=== PATIENT | male | born 1950 | race Caucasian/White ===

== ENCOUNTER 2019-06-16 17:54 | Inpatient (IN) | payer OTHER ==
[~2019-06-16] VITALS: Ht 182.9 cm; Wt 85.6 kg
[2019-06-16 17:54] VITALS: BP 174/89
[~2019-06-16 17:54] MED LIST: ASPIRIN EC81 M1 PO; CARVEDILOL3.125 MG PO; CLARITIN10 MG PO; COREG6.25 MG PO; EFFIENT10 MG PO; FISH OIL 1,0001 EAC5 PO; GLUCOPHAGE XR500 MG PO; KOMBIGLYZE XR1 EAC2 PO; LEVOTHYROXIN0.112 M1 PO; LISINOPRIL2.5 MG PO; NIASPAN ER 101000 M1 PO; NITROGLYCERIN0.4 MG SUBLING; SYNTHROID125 MCG PO
[2019-06-16 18:23] LABS: ABSOLUTE NEUTROPHILS 6.3 thou/uL (1.4-8.2); BASOPHILS 0.5 % (0.0-2.0); EOSINOPHILS 3.8 % (0.0-3.0); HEMATOCRIT 39.6 % (42.0-52.0); HEMOGLOBIN 13.4 gm/dL (14.0-18.0); LYMPHOCYTES 22.5 % (24.0-44.0); MCH 31.2 pg (26.0-34.0); MCHC 33.9 g/dL (28.0-37.0); MCV 92.2 fL (80.0-100.0); PLATELET COUNT 228 thou/uL (150-400); POLYS 63.2 % (36.0-66.0); RDW 14.6 % (10.5-14.5); WBC 9.9 thou/uL (4.0-11.0)
[2019-06-16 18:34] LABS: CALCIUM 9.4 mg/dL (8.5-10.1); CREATININE 1.1 mg/dL (0.7-1.3); POTASSIUM 3.7 mmol/L (3.5-5.1)
[2019-06-16 18:43] LABS: ALBUMIN 4.3 g/dL (3.4-5.0); TOTAL BILIRUBIN 0.4 mg/dL (<0.1-1.0); TOTAL PROTEIN 7.7 g/dL (6.4-8.2); TROPONIN-I 0.07 ng/mL (<0.06)
[2019-06-16 18:55] LABS: URINE BILIRUBIN NEGATIVE (Negative); URINE BLOOD NEGATIVE (Negative); URINE CLARITY CLEAR; URINE COLOR YELLOW; URINE GLUCOSE-RANDOM* 1+ (Negative); URINE KETONES 1+ (Negative); URINE LEUKOCYTES-REFLEX NEGATIVE (Negative); URINE NITRITE-REFLEX NEGATIVE (Negative); URINE PROTEIN (DIPSTICK) NEGATIVE (Negative)
[2019-06-16 23:13] VITALS: BP 146/77
[2019-06-16 23:48] VITALS: BP 160/84
[2019-06-17 03:22] VITALS: BP 122/80
[2019-06-17 06:47] LABS: ALBUMIN 3.5 g/dL (3.4-5.0); CALCIUM 8.5 mg/dL (8.5-10.1); CREATININE 1.1 mg/dL (0.7-1.3); POTASSIUM 4.2 mmol/L (3.5-5.1); TOTAL BILIRUBIN 0.7 mg/dL (<0.1-1.0); TOTAL PROTEIN 6.7 g/dL (6.4-8.2)
[2019-06-17 06:49] LABS: CHOLESTEROL 117 mg/dL (<200); HDL CHOLESTEROL 44 mg/dL (>40); LDL CHOLESTEROL 67 mg/dL (<100); SERUM ASSESSMENT Clear; TC:HDL 2.7 Ratio (Not establshd); TRIGLYCERIDE 33 mg/dL (<150); VLDL 7 mg/dL (<40)
[2019-06-17 07:09] VITALS: BP 122/71
--- NOTE | 2019-06-17 08:08 | EKG ---
[address] [place] [address] ELECTROCARDIOGRAM REPORT Name: MARY CHO Room #: 350-P ADM IN M.R.#: [id number] Admission: 06/16/19 Attend Phys: Nathalia Alberto MD Discharge: Date of : 48 Report #: [id number] THIS REPORT FOR: //name// [facility] ED Test Date: 2019-06-16 Test Time: 17:54:46 Pat Name: MARY CHO Department: Room: 350 Gender: M Financial Assistant: MUSA : 1950 Requested By: Jack Prakash Order Number: [id number] MD: Jin Clay Measurements Intervals [place] Rate: 51 P: 62 WV: 168 QRS: 59 QRSD: 119 T: 57 QT: 483 QTc: 445 Interpretive Statements Sinus bradycardia Incomplete right bundle branch block Compared to ECG 08/24/2012 07:39:21 Ventricular premature complex(es) no longer present Electronically Signed On 06-17-2019 8:08:33 CDT by Jin Clay [email or web address] <ELECTRONICALLY SIGNED> By: Jin Clay MD, [facility] 06/17/19 [phone] Jin Clay MD, [facility] /EPI
--- NOTE | 2019-06-17 10:17 | NUR ---
ASSESSMENT: CM REVIEWED CHART AND MET WITH PATIENT AT THE BEDSIDE. PT WAS ADMITTED WITH EPIGASTRIC PAIN/INCREASED TROPONIN. PT REPORTS THAT HE LIVES IN A HOUSE WITH HIS . PT HAS A COUPLE STEPS TO ENTER AND REPORTS THEY LIVE IN A RANCH BUT HAS ABOUT 14 STEPS WITH HANDRAILS TO THE BASEMENT WHERE HE EXERCISES. PT REPORTS HE IS FULLY INDEPENDENT WITH ADLS AND AMBULATION. PT HAS NOT HAD HH IN THE PAST. CM DISCUSSED ROLE. PT DOES NOT ANTICIPATE HAVING ANY NEEDS AT DISCHARGE.
[2019-06-17 11:09] LABS: ABSOLUTE NEUTROPHILS 10.8 thou/uL (1.4-8.2); BASOPHILS 0.4 % (0.0-2.0); HEMATOCRIT 38.2 % (42.0-52.0); HEMOGLOBIN 12.5 gm/dL (14.0-18.0); LYMPHOCYTES 8.7 % (24.0-44.0); MCH 30.7 pg (26.0-34.0); MCHC 32.6 g/dL (28.0-37.0); MONOCYTES 11.9 % (1.0-8.0); PLATELET COUNT 180 thou/uL (150-400); RBC 4.07 mil/uL (4.50-6.00); RDW 14.4 % (10.5-14.5); WBC 13.7 thou/uL (4.0-11.0)
[2019-06-17 12:22] VITALS: BP 126/69
--- NOTE | 2019-06-17 12:32 | EXE ---
[facility] [place] [address] STRESS ECHOCARDIOGRAM Name: MARY CHO Room #: 350-P [facility] IN .#: [id number] Admission: 06/16/19 Attend Phys: Nathalia Alberto, Discharge: Date of : 48 Report #: [id number] THIS REPORT FOR: //name// APPROVED REPORT Study performed: 06/17/2019 11:08:10 Exam: Stress Echocardiogram Indication: Elevated troponin Patient Location: Echo lab Stress Nurse: Carolynn Cunningham RN Status: routine Ht: 6 ft 0 in Medical History Medical History: CAD s/p stents in 2011, HTN, Hyperlipidemia, Diabetes Medications: Carvedilol Exercise History: Physically active Procedure The patient underwent an Exercise Stress Test using the Jaspreet Protocol. Blood pressure, heart rate, and EKG were monitored. An Echocardiogram was performed by log data technician in four stages in quad fashion. At peak stress, four selected images were obtained and placed side by side with resting images for comparison. Stress Test Details Stress Test: Exercise stress testing was performed using a Jaspreet protocol. HR Resting HR: 65 bpm Max Heart Rate (APMHR): 151 bpm Max HR Achieved: 139 bpm Target HR (85% APMHR): 128 bpm % of APMHR: 92 Recovery HR: 82 bpm HR response to stress: Normal HR response to stress BP Resting BP: 122/76 mmHg Max BP: 144/56 mmHg Recovery BP: 128/62 mmHg BP response to stress: Normal blood pressure response to stress. ECG [facility] [address] [place] [address] STRESS ECHOCARDIOGRAM Name: MARY CHO Howie Room #: 350-P [facility] IN [facility].#: [id number] Admission: 06/16/19 Attend Phys: Nathalia Alberto, Discharge: Date of : 48 Report #: [id number] Clinical Reason for Termination: Maximal effort Stress Symptoms: Fatigue Exercise duration: 9 min 43 sec Highest Stage Achieved: Stage 4: 4.2 mph at 16% grade. Exercise capacity: 10.60 METs Pre-Stress Echo The resting Echocardiogram showed normal left ventricular contractility with an estimated Ejection Fraction of about 55%. Post-Stress Echo Compared to rest, there were no stress-induced wall motion abnormalities. Conclusion Clinical Response: Non-ischemic Exercise Capacity: Average Stress ECG Response: Non-ischemic Stress Echo Images: Non-ischemic Other Information Study Quality: Adequate <ELECTRONICALLY SIGNED> By: Clem Shore MD, FACC 06/17/19 1232 123 123 Clem Shore MD, FACC /INF
--- NOTE | 2019-06-17 18:18 | NUR ---
PATIENT BACK FROM SURGERY. HE IS ALERT ORIENTED X4. POSITIVE ABOUT POSSIBLE SURGERY IN AM. HE IS UP AD ARON. NO COMPLAIN OF PAIN AT THIS TIME. RESPIRATIONS ARE NON LABORED. LUNGS CLEAR AT THIS TIME. EATING DINNER NOW. WILL CONT WITH PLAN OF CARE.
[2019-06-17 19:09] VITALS: BP 122/72
[2019-06-18] VITALS (13 sets, daily range): BP systolic 124–143; BP diastolic 74–91
[2019-06-18 00:05] LABS: GLYCOHEMOGLOBIN (HGB A1C) 6.4 % (4.8-5.6)
[2019-06-18 04:55] LABS: HEMATOCRIT 35.6 % (42.0-52.0); HEMOGLOBIN 11.8 gm/dL (14.0-18.0); MCH 30.7 pg (26.0-34.0); MCV 93.1 fL (80.0-100.0); RBC 3.83 mil/uL (4.50-6.00); RDW 14.4 % (10.5-14.5); WBC 9.6 thou/uL (4.0-11.0)
[2019-06-18 05:16] LABS: CALCIUM 8.7 mg/dL (8.5-10.1); CREATININE 1.2 mg/dL (0.7-1.3); MAGNESIUM 2.2 mg/dL (1.8-2.4); PHOSPHORUS 2.4 mg/dL (2.5-4.9); POTASSIUM 4.7 mmol/L (3.5-5.1)
[2019-06-18 05:18] LABS: DIRECT BILIRUBIN 1.9 mg/dL (<0.1-0.3); TOTAL PROTEIN 5.9 g/dL (6.4-8.2)
--- NOTE | 2019-06-18 05:58 | NUR ---
PT MAKING PROGRESS TOWARDS GOALS. PT HAS DENIED ANY ABDOMINAL PAIN OVERNIGHT. DENIED ANY NAUSEA WELL. HAS BEEN TO TOILET TO URINATE AND SHOWER THIS AM FOR TODAY'S SURGERY.
--- NOTE | 2019-06-18 09:00 | NUR ---
PATIENT LEFT UNIT TO OR WITH HOSPITAL OR STAFF.
--- NOTE | 2019-06-18 11:26 | HC ---
[facility] [place] [place] [address] CONSULTATION Name: TAMMIEMARY Room #: 350-P [facility] IN .R.#: [id number] Admission: 06/16/19 Attend Phys: Nathalia Alberto MD Discharge: Date of : 48 Report #: [id number] THIS REPORT FOR: //name// CC: Dr. Ham Alberto MD DATE OF SERVICE: 06/17/2019 HISTORY OF PRESENT ILLNESS: The patient is a 68-year-old male who was admitted for abdominal pain, primarily mid epigastric, but also in the right upper quadrant and periumbilical region. He denies any fevers or chills at home, is febrile here today with a temperature 101.1. His white count is 13.7. Liver function tests are normal currently. He underwent a CT scan of the abdomen and pelvis yesterday, which showed multiple gallstones within the gallbladder, also multiple small stones seen in the distal common bile duct within the pancreatic head region. No current findings for biliary obstruction, moderate amount of stool throughout the colon, extensive diverticulosis, no inflammation. An ultrasound of the abdomen was performed this morning, which showed mild prominence of the common bile duct at 7.1 mm. This could represent very minimal common bile duct obstruction, gallstones in the gallbladder, gallbladder with thickness was normal. There is a possible gallbladder polyp. No changes of acute cholecystitis noted. The patient currently denies any chest pain or shortness of breath. He does report some mild intermittent right upper quadrant abdominal pain in the last few months. He was noted to have mildly elevated troponin level on admission. Cardiology evaluated the patient. He underwent an ischemic stress test and an echo. I do not have those results; however, reportedly these were negative. PAST MEDICAL HISTORY: Coronary artery disease, history of hypertension, hyperlipidemia, diabetes, history of stent placement in 2011. ALLERGIES: STATINS. REVIEW OF SYSTEMS: As per HPI. MEDICATIONS ON ADMISSION: Claritin, Kombiglyze, Niaspan, nitroglycerin sublingual p.r.n., Synthroid, fish oil, aspirin 81 mg, carvedilol. SOCIAL HISTORY: Used to smoke. He does report occasional alcohol use. FAMILY HISTORY: Negative for colon cancer. Last colonoscopy was by myself on 03/31/2018, a small polyp was removed and diverticulosis was noted. [address] [address] CONSULTATION Name: MARY CHO Room #: 350-P [facility] IN [facility]#: [id number] Admission: 06/16/19 Attend Phys: Nathalia Alberto MD Discharge: Date of : 48 Report #: [id number] PHYSICAL EXAMINATION: VITAL SIGNS: T-Max is 101.1 that was early this morning, most recent temperature is 100.1, pulse 82, blood pressure 126/69, respiratory rate is 20. GENERAL: He is alert and oriented x 3, in no acute distress. HEENT: Sclerae nonicteric. Oropharynx clear. NECK: Supple, without lymphadenopathy. CARDIOVASCULAR: Regular rate and rhythm. CHEST: Clear to auscultation bilaterally. ABDOMEN: Soft. He is mildly tender to palpation in the midepigastrium right upper quadrant, nondistended, normoactive bowel sounds. EXTREMITIES: No cyanosis, clubbing or edema. LABORATORY DATA: Sodium 141, potassium 4.2, chloride 105, bicarbonate 28, BUN 12, creatinine 1.1, glucose 146, AST 16, lipase 169, total bilirubin 0.7, alkaline phosphatase 73, ALT is 50, total protein 6.7, albumin 3.5. WBC is 13.7, hemoglobin 12.5, platelet count is 180. ASSESSMENT AND PLAN: Abdominal pain. CT and ultrasound showing cholelithiasis. The patient also was noted to have choledocholithiasis on CT scan, his duct is mildly dilated. His liver function tests are normal at this time. I had a long discussion with the patient and his today. I would recommend proceeding with an ERCP. The patient is febrile at this time. Agree with antibiotics, which have now been started. I will make further recommendations after ERCP today. The patient will need a General Surgery consult as well for possible laparoscopic cholecystectomy in the near future. Thank you for allowing me to participate in his care. <ELECTRONICALLY SIGNED> By: Kaushik Trinidad MD 06/18/19 1126 1652 0209 Kaushik Trinidad MD /nt
--- NOTE | 2019-06-18 11:26 | P ---
[facility] [place] [address] PROCEDURE REPORT Name: TAMMIEMARY Room #: 350-P [facility] IN .R.#: [id number] Admission: 06/16/19 Attend Phys: Nathalia Alberto MD Discharge: Date of : 48 Report #: [id number] THIS REPORT FOR: //name// CC: Dr. Ham Alberto MD DATE OF SERVICE: 06/17/2019 PROCEDURE PERFORMED: ERCP. HISTORY OF PRESENT ILLNESS: The patient is a 68-year-old male with abdominal pain. CT scan of the abdomen and pelvis last night showed choledocholithiasis as well as cholelithiasis. Liver function tests are normal. Ultrasound also showing mild dilation of his common bile duct to 7.1 mm, no gallbladder wall thickening. The patient was febrile early this morning. He has a mildly elevated white count. I had a long discussion with the patient regarding his symptoms and imaging results. I explained to the patient I would recommend proceeding with an ERCP due to his common bile duct stones and his symptoms. He understood and agreed. DESCRIPTION OF PROCEDURE: The risks and benefits of the procedure were explained to the patient, those risks including but not limited to bleeding, perforation, the risk of sedation as well as potential risk for post-ERCP pancreatitis. He understood these risks and gave informed consent. The procedure was performed in the operating room under general anesthesia. The patient has already been started on IV Zosyn. He was also given 50 mg indomethacin rectal suppository prior to the procedure. Next, using a standard Olympus side-viewing ERCP scope, the scope was placed in the patient's mouth and advanced under direct vision through the esophagus, stomach and into the second portion of the duodenum. The major papilla was identified, which was normal in appearance. Next, using a Jose-Cook 0.025 sphincterotome catheter, the common bile duct was attempted to be cannulated. Multiple attempts were made. Eventually, I was able to obtain a cholangiogram. It appears there is a stone in the distal common duct that is lodged in this area. The common bile duct does fill slowly. There are multiple other filling defects within the common bile duct consistent with choledocholithiasis. The intrahepatics appeared normal. The PD also feels at the same time of the common bile duct. I attempted multiple times to pass a guidewire up into the common bile duct, but it appears again, there is a stone in the distal duct impeding this. It allows contrast to flow and obtain a cholangiogram, although this is not easy, but a wire was not able to be passed. We tried rotating the patient. I tried 2 different sphincterotome catheters and different wires as well. After multiple attempts of being unsuccessful to pass a wire at that point, I decided to [address] [address] PROCEDURE REPORT Name: TAMMIEMARY Room #: 350-P [facility] IN M.R.#: [id number] Admission: 06/16/19 Attend Phys: Nathalia Alberto MD Discharge: Date of : 48 Report #: [id number] terminate the procedure. The scope was withdrawn and the procedure terminated. The patient tolerated the procedure well. Next, cholangiogram showing multiple filling defects in the common bile duct consistent with stones. Unfortunately, there appears to be a stone in the distal duct that I was not able to pass a wire beyond. Again, contrast would flow be around, but I was unable to advance the catheter or wire beyond the filling defect. The PD also filled at the same time of the common duct. RECOMMENDATIONS: Continue to monitor liver function tests. Continue IV antibiotics. Surgery consult for laparoscopic cholecystectomy. The patient may need a reattempt ERCP in the near future. I would recommend possibly having Dr. Aguilera attempt this and he could use EUS as well if needed. Thank you for allowing me to participate in his care. <ELECTRONICALLY SIGNED> By: Kaushik Trinidad MD 06/18/19 1126 1657 0211 Kaushik Trinidad MD /nt
--- NOTE | 2019-06-18 14:20 | NUR ---
PATIENT RETURNED TO UNIT FROM PACU AT 1330 TODAY. HE IS ALERT AND ORIENTED. YESSENIA DRAIN AND T-TUBE INTACT. NURSE JUST CHECKED ON HIM AGAIN AND HE EXPRESED THAT HE DOES NOT NEED PAIN MEDICATION AT THIS TIME. NURSE TALKED WITH HIM ABOUT PAIN MANAGEMENT.
[2019-06-18 16:18] LABS: DIRECT BILIRUBIN 1.9 mg/dL (<0.1-0.3); TOTAL BILIRUBIN 2.6 mg/dL (<0.1-1.0); TOTAL PROTEIN 6.5 g/dL (6.4-8.2)
[2019-06-19 04:31] VITALS: BP 145/98
[2019-06-19 06:04] LABS: ALBUMIN 2.8 g/dL (3.4-5.0); CREATININE 1.1 mg/dL (0.7-1.3); DIRECT BILIRUBIN 0.4 mg/dL (<0.1-0.3); PHOSPHORUS 2.6 mg/dL (2.5-4.9); TOTAL BILIRUBIN 0.9 mg/dL (<0.1-1.0); TOTAL PROTEIN 6.5 g/dL (6.4-8.2)
[2019-06-19 06:09] LABS: CALCIUM 8.6 mg/dL (8.5-10.1)
--- NOTE | 2019-06-19 08:05 | NUR ---
ASSUMED CARE OF PT AT 1900. A&Ox4. VS STABLE, ASSMTS DOCUMENTED. DID NOT WANT PAIN MEDS DURING MOST OF SHIFT. REQUESTED PAIN MEDS AROUND 0400, PROVIDED AND PT ABLE TO REST. UPX1 ASSIST TO BR. VOIDED WITHOUT DIFFICULTY. 3U INSULIN GIVEN FOR BG OF 196. PROGRESSING WELL TOWARDS POC GOALS.
[2019-06-19 08:23] VITALS: BP 149/99
[2019-06-19 11:32] VITALS: BP 161/99
[2019-06-19 16:43] VITALS: BP 154/87
[2019-06-19 19:15] VITALS: BP 161/99
--- NOTE | 2019-06-19 21:24 | NUR ---
PT GIVEN PO PAIN MEDICATION ONCE THIS SHIFT. PT AMBULATED AROUND UNIT THREE TIMES. POSSIBLE DC TOMORROW. PT TOLERATED DIET ADVANCES WELL. DR GOLDBERG DID DRAIN TEAVHING WITH PT.
[2019-06-20 03:39] VITALS: BP 148/99
--- NOTE | 2019-06-20 03:55 | NUR ---
RESTING QUIETLY TONIGHT. CALLS FOR ASSIST OUT OF BED. HIS IV HYDROMORPHONE HELPS HIM REST THROUGH THE NIGHT SO THAT HE DOES AWAKE IN A HIGH PAIN LEVEL. CONTINUES ON IV FLUIDS. CAREPLAN REVIWEED.
[2019-06-20 06:36] LABS: HEMATOCRIT 34.9 % (42.0-52.0); HEMOGLOBIN 11.5 gm/dL (14.0-18.0); MCH 30.8 pg (26.0-34.0); MCV 93.3 fL (80.0-100.0); RBC 3.74 mil/uL (4.50-6.00); RDW 13.9 % (10.5-14.5); WBC 6.2 thou/uL (4.0-11.0)
[2019-06-20 06:54] LABS: ALBUMIN 2.6 g/dL (3.4-5.0); CALCIUM 8.2 mg/dL (8.5-10.1); CREATININE 1.1 mg/dL (0.7-1.3); DIRECT BILIRUBIN 0.2 mg/dL (<0.1-0.3); MAGNESIUM 1.7 mg/dL (1.8-2.4); POTASSIUM 3.4 mmol/L (3.5-5.1); TOTAL BILIRUBIN 0.5 mg/dL (<0.1-1.0); TOTAL PROTEIN 6.3 g/dL (6.4-8.2)
[2019-06-20 07:47] VITALS: BP 162/93
--- NOTE | 2019-06-20 09:03 | EKG ---
[address] [address] ELECTROCARDIOGRAM REPORT Name: MARY CHO Room #: 350-P ADM IN M.R.#: [id number] Admission: 06/16/19 Attend Phys: Nathalia Alberto MD Discharge: Date of : 48 Report #: [id number] THIS REPORT FOR: //name// [facility] Test Date: 2019-06-18 Test Time: 08:06:17 Pat Name: MARY CHO Department: Room: 350 P Gender: M Call Center Operations Manager: TYLOR : 1950 Requested By: Christine Dey Order Number: [id number] MD: Jin Clay Measurements Intervals [place] Rate: 56 P: 26 ME: 159 QRS: -7 QRSD: 111 T: 69 QT: 450 QTc: 435 Interpretive Statements Sinus bradycardia Early R-wave progression Compared to ECG 06/16/2019 17:54:46 no significant change was found Electronically Signed On 06-20-2019 9:03:11 CDT by Jin Clay [email or web address] <ELECTRONICALLY SIGNED> By: Jin Clay MD, [facility] 06/20/19902 5 5 Jin Clay MD, FACC /EPI
--- NOTE | 2019-06-20 09:15 | EKG ---
[address] [address] ELECTROCARDIOGRAM REPORT Name: AMRY CHO Room #: 350-P ADM IN M.R.#: [id number] Admission: 06/16/19 Attend Phys: Nathalia Alberto MD Discharge: Date of : 48 Report #: [id number] THIS REPORT FOR: //name// [facility] Test Date: 2019-06-19 Test Time: 07:22:16 Pat Name: MARY CHO Department: Room: 350 P Gender: M Speech Language Assistant: Reggie WHITMAN : 1950 Requested By: Iain Combs Order Number: [id number] MD: Jin Clay Measurements Intervals [place] Rate: 64 P: 2 MS: 147 QRS: -10 QRSD: 114 T: 68 QT: 433 QTc: 447 Interpretive Statements Sinus rhythm RSR' in V1 or V2, right VCD Compared to ECG 06/16/2019 17:54:46 no significant change was found Electronically Signed On 06-20-2019 9:15:17 CDT by Jin Clay [email or web address] <ELECTRONICALLY SIGNED> By: Jin Clay MD, [facility] 10/914 1 1 Jin Clay MD, [facility] /EPI
--- NOTE | 2019-06-20 10:02 | NUR ---
ON-GOING ASSESSMENT: CM REVIEWED CHART AND MET WITH PATIENT AND HIS AT THE BEDSIDE. PT IS S/P LES WERNER AND HAS T -TUBE. CM DISCUSSED ROLE AND IF HE WOULD PREFER HOME WITH HH DUE TO HAVING T-TUBE. PT STATES HE FEELS HE IS ABLE TO CARE FOR T-TUBE HIMSELF AND DOES NOT FEEL HE NEEDS HH. CM WILL CONTINUE TO FOLLOW TO ASSIST NEEDED. PT PLANS ON DISCHARGING HOME WITH NO NEEDS AT DISCHARGE.
[2019-06-20 15:19] VITALS: BP 137/95
--- NOTE | 2019-06-20 17:58 | NUR ---
PT UP AND WALKING THE HALLS TODAY AND TOLERATED WELL. YESSENIA AND T DRAIN REMIAN IN PLACE. ELECTROLYTES REPLACED TODAT. WILL CONTINUE TO ASSESS.
[2019-06-20 19:26] VITALS: BP 146/90
[2019-06-20 21:27] LABS: CALCIUM 8.1 mg/dL (8.5-10.1); CREATININE 1.1 mg/dL (0.7-1.3); MAGNESIUM 1.9 mg/dL (1.8-2.4); POTASSIUM 3.3 mmol/L (3.5-5.1)
--- NOTE | 2019-06-21 06:03 | NUR ---
Pt. transfered to the unit around 2330 last evening. He is alert and oriented. He did c/o some abdominal pain and was given iv pain med (see emar) with some relief noted. T-tube and fe drain to abdomen are intact. Up to the bathroom with stand by assistance.
[2019-06-21 07:13] LABS: HEMATOCRIT 37.9 % (42.0-52.0); HEMOGLOBIN 12.5 gm/dL (14.0-18.0); MCH 30.6 pg (26.0-34.0); MCHC 33.1 g/dL (28.0-37.0); MCV 92.5 fL (80.0-100.0); PLATELET COUNT 191 thou/uL (150-400); WBC 7.1 thou/uL (4.0-11.0)
[2019-06-21 07:27] LABS: ALBUMIN 2.6 g/dL (3.4-5.0); CALCIUM 8.5 mg/dL (8.5-10.1); POTASSIUM 3.1 mmol/L (3.5-5.1); TOTAL BILIRUBIN 0.6 mg/dL (<0.1-1.0); TOTAL PROTEIN 6.7 g/dL (6.4-8.2)
[2019-06-21] MEDS ORDERED: AUGMENTIN 875-1 EACH PO (09:16)
[2019-06-21 09:19] LABS: ABSOLUTE NEUTROPHILS 4.7 thou/uL (1.4-8.2); PLATELET ESTIMATE NORMAL
[2019-06-21 09:24] VITALS: BP 140/89
[2019-06-21] MEDS ORDERED: ONGLYZA2.5 MG PO (10:22)
[2019-06-21] MEDS ORDERED: POTASSIUM20 PO (10:22)
[2019-06-21] MEDS ORDERED: MAG-OXIDE400 MG PO (10:22)
[2019-06-21 13:49] VITALS: BP 140/89
--- NOTE | 2019-06-21 14:02 | NUR ---
Assumed patient care at 0715. Patient's vital signs have been stable; he denies pain. Latest blood sugar was 156 at 1216, requiring 3 units of Insulin Lispro. Food and fluid intake appropriate. Dr Combs removed J-drain which had small amount of serosanginious fluid in it. T-drain will be removed at follow-up with Dr Combs; output 200cc prior ro Discharge. Patient signed Discharge paperwork after verbalizing an understanding. Patient escorted in wheelchair out with all of his belongings. present.
--- NOTE | 2019-06-21 14:46 | NUR ---
CARE TEAM INDICATED THAT PT IS MEDICALLY STABLE TO DC HOME THIS DAY. PT IS TO DC HOME WITH NO NEEDS. NO OTHER CM INTERVENTION INDICATED. CASE CLOSED.
--- NOTE | 2019-06-21 18:06 | PATH ---
[facility] [address] [address] PATHOLOGY RPT PROCEDURE Name: AJAY CHO Howie Room #: 456-P [facility] IN M.R.#: [id number] Admission: 06/16/19 Date of : 48 Discharge: 06/21/19 Report #: [id number] Path Case #: [id number] [facility] Accession Number: [id number] . 01 Material submitted: . PART A: gallbladder - COMMON BILE DUCT STONES PART B: gallbladder - GALLBLADDER . 01 Clinical history: . Acute cholecystitis, cholelithiasis, obstructive jaundice Pancreatitis . 02 Diagnosis: A. Common bile duct stones: - Multiple hernandez to brown calculi, 1.8 cm aggregate measurement (gross exam only). . B. Gallbladder, cholecystectomy: - Hemorrhagic and gangrenous cholecystitis associated with ulceration. - Incidental lymph node within gallbladder wall. . (IUV:jocelyn; 06/21/2019) MBR 06/21/2019 1339 Local . 02 Electronically signed: . Mayra House MD, Pathologist NPI- [id number] . 01 Gross description: . A. The specimen is received in formalin, labeled "Ajay Cho, common bile duct stones" and consists of multiple hernandez-brown smooth to fragmented calculi measuring 1.8 x 0.5 x 0.3 cm in aggregate. A gross photo is taken and no sections are submitted. . B. The specimen is received in formalin labeled "Ajay Cho, gallbladder" and consists of a previously opened, pink-purple markedly hemorrhagic gallbladder measuring 9.4 x 3.3 x 1.6 cm. The margin is inked black. No calculi are present within the gallbladder lumen or the container. The mucosa is gangrenous green-brown and eroded with an average wall thickness of 0.1-0.2 cm. No masses are identified. [employer] sections are submitted in B1-B2. (SDY; 06/20/2019) SYU/SYU 06/20/2019 105 Local . 02 Pathologist provided ICD-10: K80.10, K82.8 . [address] [address] PATHOLOGY RPT PROCEDURE Name: AJAY CHO A Room #: 456-P DIS IN M.R.#: [id number] Admission: 06/16/19 Date of : 48 Discharge: 06/21/19 Report #: [id number] Path Case #: [id number] [facility] . [id number], [id number] Specimen Comment: A courtesy copy of this report has been sent to Specimen Comment: [phone], , . Specimen Comment: Report sent to ,DR ARANA / DR TILLEY Performed at: [address], [place], [place] [id number] MD Klaus Mckeon MD Phone: [phone] Performed at: [address] [facility] [id number] MD Mayra House MD Phone: [phone]
--- NOTE | 2019-07-19 12:03 | O ---
[facility] [place] [address] [place] [address] OPERATIVE REPORT Name: TAMMIEMARY Room #: 456-P [facility] IN M.R.#: [id number] Admission: 06/16/19 Attend Phys: Nathalia Alberto MD Discharge: 06/21/19 Date of : 48 Report #: [id number] THIS REPORT FOR: //name// CC: Herb Alberto MD PREOPERATIVE DIAGNOSES: Cholecystitis with cholelithiasis, common duct stone, pancreatitis, status post unsuccessful ERCP. POSTOPERATIVE DIAGNOSES: Acute cholecystitis with gangrenous change, common bile duct stones x 8, and pancreatitis. PROCEDURE PERFORMED: Laparoscopic cholecystectomy with cholangiogram, common duct exploration with biliary Fogerty, and choledochoscope T-tube cholangiogram. SURGEON: Iain Combs MD ANESTHESIA: General anesthesia. ESTIMATED BLOOD LOSS: 10 mL. COMPLICATIONS: None. DESCRIPTION OF PROCEDURE: With the patient under general anesthesia, abdomen was prepped and draped in sterile fashion and a timeout was performed. The patient did receive a dose of Zosyn, which he was scheduled to receive at this point. Abdomen was prepped and draped. Timeout was performed. Then 0.25% Marcaine was used to anesthetize the skin. A 2-cm transverse incision was made infraumbilically. Fascia was identified. Fascia was grasped with hemostat. Fascia was then opened under visualization. An 0 Vicryl suture was placed on the fascia edges for retraction. Veress needle was then placed through the peritoneum. Abdominal cavity was insufflated with CO2. Two 5-mm trocars were placed in right upper quadrant and a 5-mm trocar was placed in right epigastrium. The gallbladder had acute inflammation identified. There was exudate and some free fluid around the gallbladder. The gallbladder also looked angry and also thickened. The bile was suctioned out with an aspirating needle to facilitate this grabbing of the gallbladder with graspers. The gallbladder was lifted up over the liver. The proximal gallbladder was identified. The peritoneum was dissected free. This was done medial and laterally. The cystic duct was isolated without difficulty. Cystic duct is moderately dilated. A clip was able to be placed across the cystic duct at the junction to the gallbladder. Opening was made in the cystic duct. The cystic duct was milked and there was some sludgy material that came out. Cholangiogram catheter was placed. Fluoroscopic cholangiogram was obtained. The intraoperative cholangiogram did show multiple stones in the distal common duct. I counted about 8 filling defects. Cholangiogram catheter was then removed. We will [address] [address] OPERATIVE REPORT Name: TAMMIEMARY Room #: 456-P [facility] IN M.R.#: [id number] Admission: 06/16/19 Attend Phys: Nathalia Alberto MD Discharge: 06/21/19 Date of : 48 Report #: [id number] proceed with common duct exploration. The proximal part of the cystic duct was then clipped x 2. The gallbladder was left for retraction. One of the graspers placed in a little bit more proximal part of the gallbladder, the other one was free for the common duct exploration. The fatty tissue over the common duct was dissected free with blunt dissection cautery and also with a laparoscopic peanut. The common duct was isolated and visualized well. This visualization was performed about the midpoint of the common duct where the cystic duct joins it. A good access to the duct was obtained. A [place] knife was used to open the common duct. The opening was enlarged. The duct was flushed with saline. Initially, no stone came out. The biliary Kiesha was then used. The biliary Kiesha was able to be passed down without resistance. From the distance, I am pretty sure it was in the duodenum, the balloon was inflated. This was then pulled back. A small resistance was felt at the ampulla. The balloon was let down. Then, the catheter was pulled back. Initial pass did not get any stone. A second pass was performed. This time, the balloon was left after traversing the sphincter was reinflated. Multiple stones were then visualized dragged to the opening of the common duct. Stones were extracted. I got 4 stones out and these are about or BB size between 1-2 mm. Therefore, they were removed intact. One was crushed. Three additional stones were suctioned out. The biliary Kiesha was then passed down again and noted that there were no further stones. A choledochoscope was then placed into the common duct. This was guided down inferiorly and the lumen can be seen and I do not see any filling defect. A #14 T-tube was then placed. This was fashioned by removing the back wall of the tube. A small T shape was obtained. This was placed into the opening in the common duct without difficulty. I had a fairly good seal. A 4-0 PDS was placed closing the duct around the T-tube. Three separate sutures were used; 2 above, 1 below. A knot pusher was used to tighten the knots. A T-tube cholangiogram was then performed. I do not see any filling defect that looked like the stones that we saw. On initial injection, the duct filled out well. I did not see any spillage and then reinjection, I was able to see the dye flow into the duodenum. Because of the patient's pancreatitis with elevation of lipase of 7000 this morning, I did not inject with pressure or inject excessively. I was able to see little strandy material on the choledochoscope, which is fibrous material and also saw that on the T-tube cholangiogram. This should pass out. I did not see any obvious filling defect. The gallbladder was then removed. The cystic duct was divided. The artery was found. The cystic artery was clipped x 2 proximally and distally and divided. Gallbladder was divided from the liver. The gallbladder did have necrosis. There is an area along the body of the gallbladder that was a pretty necrotic. The gallbladder was completely freed. Gallbladder was placed in a specimen bag, retrieved through the infraumbilical port. The gallbladder was opened off the field. There were no further stones in the gallbladder. Some of was suctioned out. There was necrosis of the mucosa. Liver bed was checked, hemostasis obtained. A #19 [facility] [address] [place] [address] OPERATIVE REPORT Name: MARY CHO Room #: 456-P [facility] IN .R.#: [id number] Admission: 06/16/19 Attend Phys: Nathalia Alberto MD Discharge: 06/21/19 Date of : 48 Report #: [id number] Andreas drain was placed in Morison's pouch. The T-tube was brought out through the middle 5-mm trocar. The YESSENIA drain was brought out through the lateral 5-mm trocar. CO2 was evacuated. Trocars removed. The fascia defect infraumbilically was closed with [id number] 0 Vicryl x 3. Skin was irrigated. Skin was then closed with 5-0 PDS. Steri-Strip, Band-Aids applied. 4 x 4's were placed. Gauze was placed around the T-tube and YESSENIA drain and OpSite was used for dressing. The patient tolerated the procedure well and was taken to recovery room. <ELECTRONICALLY SIGNED> By: Iain Combs MD 07/19/19 1203 [id number] Iain Combs MD /nt
--- NOTE | 2019-07-19 12:03 | HC ---
[facility] [place] [place] [address] CONSULTATION Name: MARY CHO Room #: 456-P [facility] IN M.R.#: [id number] Admission: 06/16/19 Attend Phys: Nathalia Alberto MD Discharge: 06/21/19 Date of : 48 Report #: [id number] THIS REPORT FOR: //name// CC: Herb Alberto DATE OF SERVICE: 06/17/2019 REASON FOR CONSULTATION: Common duct stone, status post ERCP and abdominal pain, cholecystitis with fever. HISTORY OF PRESENT ILLNESS: The patient is a 68-year-old who afternoon developed fairly abrupt onset of pain located in the upper part of the abdomen. The patient noted diaphoresis and nausea. The patient did eat some greasy food. He denies any pains like this in the past. His is quite knowledgeable in medicine, has had her gallbladder removed. They have a stable premature child that they take care of. The patient was found by the radiologist to have gallstones on a CT scan and also CT showing stones in the distal common bile duct in the pancreatic head region. Patient's liver function tests are normal. The patient just underwent ERCP and he is in the recovery room. Dr. Trinidad noted that I was there and came out and discussed the finding of the ERCP. The ERCP was unsuccessful. The wire would not curve around the stone to do even a sphincterotomy. The patient did have a fever of 38.2. His liver function tests are normal. PAST MEDICAL HISTORY: Significant for heart disease and he has been seen by a development officer and he is being cleared to proceed with an ERCP and surgery. The patient is not on any blood thinners. The patient had a stress echo on the , which showed normal left ventricular systolic function. He was felt to be low cardiovascular risk for ERCP. PHYSICAL EXAMINATION: GENERAL: The patient is a well-nourished male. He has a scar in the lower abdomen from prostate surgery. ABDOMEN: He looks a little bit jaundiced. He is somewhat sleepy from the ERCP, but he is coherent. No remarkable mass, guarding or rigidity. Mild tenderness is present in the right upper quadrant. IMPRESSION: The patient is a 68-year-old with gallstones and finding of common duct stone. ERCP was not able to get the stone out. His duct is measuring 7 mm. I believe the patient is a good candidate for laparoscopic cholecystectomy and probable common duct exploration. Procedure was discussed with the patient and his who was upstairs and I spoke with her about it and she understands and agrees with proceeding with surgery. I will go ahead and put him on the [facility] [address] [place] [address] CONSULTATION Name: MARY CHO Room #: 456-P [facility] IN M.R.#: [id number] Admission: 06/16/19 Attend Phys: Nathalia Alberto MD Discharge: 06/21/19 Date of : 48 Report #: [id number] schedule for tomorrow. We will continue his IV antibiotics, n.p.o. after midnight. We will keep him on IV fluids. <ELECTRONICALLY SIGNED> By: Iain Combs MD 07/19/19 1203 1115 1322 Iain Combs MD /nt
== END 2019-06-21 14:38 | disposition home or self-care (01) | DRG 417 ==
LOC: ER 17:54 → 3W 21:17 → 4W 21:17 → EROBS 21:17 → 3W 23:34 → 4W 06-20 23:24 → ENTRNSPT 06-21 14:24 → EDTRNSPTSTS 06-21 14:25 → 4W 06-21 14:38
PROVIDERS: Emergency Medicine; Nurse Practitioner Acute Care; Specialist; Surgery; ADMIT Internal Medicine
PROC: 0FJB8ZZ Inspection of Hepatobiliary Duct, Via Natural or Artificial Opening Endoscopic (ICD-10-PCS; principal; 2019-06-17)
PROC: BF131ZZ Fluoroscopy of Gallbladder and Bile Ducts using Low Osmolar Contrast (ICD-10-PCS; principal; 2019-06-17)
PROC: 0FC98ZZ Extirpation of Matter from Common Bile Duct, Via Natural or Artificial Opening Endoscopic (ICD-10-PCS; 2019-06-19)
PROC: 0FT44ZZ Resection of Gallbladder, Percutaneous Endoscopic Approach (ICD-10-PCS; 2019-06-19)
PROC: BF131ZZ Fluoroscopy of Gallbladder and Bile Ducts using Low Osmolar Contrast (ICD-10-PCS; 2019-06-19)
DX: K80.66 Calculus of gallbladder and bile duct with acute and chronic cholecystitis without obstruction (principal); K85.90 Acute pancreatitis without necrosis or infection, unspecified; K83.09 Other cholangitis; E46 Unspecified protein-calorie malnutrition; E11.65 Type 2 diabetes mellitus with hyperglycemia; R79.89 Other specified abnormal findings of blood chemistry; E03.9 Hypothyroidism, unspecified; I25.10 Atherosclerotic heart disease of native coronary artery without angina pectoris; E78.5 Hyperlipidemia, unspecified; K57.30 Diverticulosis of large intestine without perforation or abscess without bleeding; K59.00 Constipation, unspecified; E87.6 Hypokalemia; E83.42 Hypomagnesemia; E83.39 Other disorders of phosphorus metabolism; I10 Essential (primary) hypertension; K82.A1 Gangrene of gallbladder in cholecystitis; I25.2 Old myocardial infarction; Z95.5 Presence of coronary angioplasty implant and graft; Z85.46 Personal history of malignant neoplasm of prostate; Z90.79 Acquired absence of other genital organ(s); Z88.8 Allergy status to other drugs, medicaments and biological substances; Z79.82 Long term (current) use of aspirin; Z87.891 Personal history of nicotine dependence; Z68.25 Body mass index [BMI] 25.0-25.9, adult
CPT/HCPCS: 10040; 10045; 10879; 50101; 50249; 50411; 50555; 50558; 51489; 51687; 51758; 53307; 53310; 53312; 53331; 55245; 55317; 56462; 56524; 56525; 56526; 57160; 62110; 62900; 70005

== ENCOUNTER → 2019-08-04 | Outpatient (CLI) | payer OTHER ==
[~2019-08-04] MED LIST changes: +AUGMENTIN 875-1 EACH PO; +MAG-OXIDE400 MG PO; +ONGLYZA2.5 MG PO; +POTASSIUM20 PO
== END | disposition home or self-care (01) ==
LOC: RAD 09:46 → SPEC 14:18 → RAD 15:38
DX: Z09 Encounter for follow-up examination after completed treatment for conditions other than malignant neoplasm (principal); Z87.19 Personal history of other diseases of the digestive system; I25.10 Atherosclerotic heart disease of native coronary artery without angina pectoris; E11.9 Type 2 diabetes mellitus without complications; Z98.890 Other specified postprocedural states; Z79.899 Other long term (current) drug therapy; Z88.8 Allergy status to other drugs, medicaments and biological substances